=== PATIENT | female | born 1945 | race Caucasian/White ===

== ENCOUNTER → 2016-10-11 | Outpatient (CLI) | payer MEDICARE ==
[~2016-10-11] MED LIST: ALLOPURINOL100 MG PO; ASPIRIN81 M1 PO; AUGMENTIN 500500 MG PO; AUGMENTIN 875 M1 TAB PO; AUGMENTIN 875875 MG PO; B COMPLEX 501 TAB PO; BACTRIM DS 8001 TA1 PO; BENTYL10 MG PO; CALCIUM600 M2 PO; CARDURA8 MG PO; CEFUROXIME AXE250 MG PO; CIPRO500 MG PO; CIPROFLOXACIN500 MG PO; COLACE100 MG PO; COZAAR100 MG PO; COZAAR25 MG PO; CYCLOBENZAPRINE5 MG PO; DICLOFENAC SOD75 MG PO; DITROPAN5 MG PO; DOXAZOSIN4 MG PO; EPA1000 MG PO; ETOLDOLAC400 MG PO; FIBER CHOICE1 CTB PO; FISH OIL 10001000 MG PO; FLOMAX0.4 MG PO; HYDR25T PO; HYDROCODONE BIT1 T11 PO; HYZAAR 25 MG-101 TA1 PO; K-TAB20 MEQ PO; KEY-E400 IU PO; KLOR-CON M2020 ME1 PO; LASIX40 MG PO; LEVAQUIN750 MG; LEVOFLOXACIN500 MG PO; LEVOTHYROXIN0.025 MG PO; LISINOPRIL HCTZ1 TA1 PO; LOMOTIL 0.025 M1 TAB PO; Lovenox40 MG/0.4 PO; MACROBID100 M1 PO; METOPROLOL50 MG PO; MIRALAX17 GM/DOSE PO; MULTIPLE VITAMI1 TAB PO; NORCO 325 MG-101 TAB PO; NORCO 5-325 TA1 EACH PO; OMNICEF300 MG PO; OXYBUTYNIN5 MG PO; PAIN MEDICATION; PERCOCET 325 MG1 TA2 PO; PHENAZOPYRIDIN200 MG PO; PHILLIPS1 TAB PO; POTASSIUM20 MEQ PO; PYRIDIUM200 MG PO; SERTRALINE HCL50 MG PO; Synthroid,Levo50 MCG PO; THERAPEUTIC VIT1 CAP PO; TORADOL10 MG PO; TOVIAZ4 MG PO; VENTOLIN H0.09 MG/AC INH; VICODIN ES 7501 TAB PO; VITAMIN B COMPL1 CAP PO; VITAMIN C500 MG PO; VITAMIN D50000 I2 PO; VITAMIN E400 I1 PO; VITAMIN E400 UNI1 PO; ZOFRAN ODT4 MG SL; ZOLOFT50 MG PO; Zofran4 MG PO
[2016-10-11 15:30] LABS: BASO % 0.2 % (0.0-1.0); EOS # 0.3 10*3/uL (0.0-0.4); EOS % 3.2 % (1.0-4.0); HEMATOCRIT 40.6 % (37.0-47.0); IG # 0.1 10*3/uL (0.0-0.1); LYMPH # 2.1 10*3/uL (1.3-4.4); LYMPH % 23.2 % (27.0-41.0); MEAN CELL VOLUME 86.4 fl (81.0-99.0); MEAN CORPUSCULAR HGB 29.8 pg (27.0-31.0); MEAN CORPUSCULAR HGB CONC 34.5 g/dl (33.0-37.0); MEAN PLATELET VOLUME 9.4 fl (9.6-12.3); MONO # 0.9 10*3/uL (0.1-1.0); MONO % 9.5 % (3.0-9.0); NEUT # 5.6 10*3/uL (2.3-7.9); NEUT % 63.1 % (47.0-73.0); PLATELET COUNT AUTOMATED 256 10*3/uL (130-400); RED CELL DISTRI WIDTH 15.3 % (0-14.5); WHITE BLOOD COUNT 8.9 10*3/uL (4.8-10.8)
[2016-10-11 15:46] LABS: ALBUMIN 3.8 gm/dl (3.1-4.5); ALKALINE PHOSPHATASE 118 U/L (45-117); BILIRUBIN, TOTAL 0.5 mg/dl (0.2-1.0); BUN 23 mg/dl (7-24); CARBON DIOXIDE 29 mmol/L (21-32); CHLORIDE 105 mmol/L (98-107); EST GLOM FILT AFRICAN AMERICAN > 60 ml/min; GLUCOSE 96 mg/dL (65-99); POTASSIUM 3.5 mmol/L (3.5-5.1); SGOT/AST 19 IU/L (3-35); SGPT/ALT 29 U/L (12-78); SODIUM 144 mmol/L (136-145); TOTAL PROTEIN 7.9 gm/dL (6.4-8.2)
[2016-10-11 15:53] LABS: FREE T4 0.96 ng/dl (0.76-1.46); THYROID STIM HORMONE (HS) 4.8 uIU/ml (0.358-4.75); URIC ACID 5.8 mg/dL (2.6-6.0)
== END | disposition home or self-care (01) ==
LOC: LAB 14:52
PROVIDERS: Internal Medicine
DX: I10 Essential (primary) hypertension (principal); E78.2 Mixed hyperlipidemia; E03.9 Hypothyroidism, unspecified; M10.071 Idiopathic gout, right ankle and foot

== ENCOUNTER 2016-10-26 17:48 | Emergency (ER) | payer MEDICARE ==
[~2016-10-26] VITALS: Ht 162.5 cm; Wt 93.0 kg
[~2016-10-26 17:48] MED LIST changes: -NORCO 5-325 TA1 EACH PO
[2016-10-26 19:32] VITALS: BP 160/67
[2016-10-26 19:42] LABS: BASO % 0.2 % (0.0-1.0); EOS # 0.2 10*3/uL (0.0-0.4); EOS % 2.1 % (1.0-4.0); HEMATOCRIT 43.3 % (37.0-47.0); HEMOGLOBIN 14.5 g/dl (12.0-16.0); IG # 0.1 10*3/uL (0.0-0.1); LYMPH # 1.5 10*3/uL (1.3-4.4); LYMPH % 14.8 % (27.0-41.0); MEAN CELL VOLUME 88.5 fl (81.0-99.0); MEAN CORPUSCULAR HGB 29.7 pg (27.0-31.0); MEAN CORPUSCULAR HGB CONC 33.5 g/dl (33.0-37.0); MEAN PLATELET VOLUME 9.2 fl (9.6-12.3); MONO # 0.8 10*3/uL (0.1-1.0); MONO % 7.7 % (3.0-9.0); NEUT # 7.8 10*3/uL (2.3-7.9); NEUT % 74.7 % (47.0-73.0); PLATELET COUNT AUTOMATED 237 10*3/uL (130-400); RED BLOOD COUNT 4.89 10*6/uL (4.10-5.10); RED CELL DISTRI WIDTH 15.3 % (0-14.5); WHITE BLOOD COUNT 10.4 10*3/uL (4.8-10.8)
[2016-10-26 19:53] LABS: PROTHROMBIN TIME 10.7 SECONDS (9.0-12.4)
[2016-10-26 19:55] LABS: ALBUMIN 3.9 gm/dl (3.1-4.5); ALKALINE PHOSPHATASE 124 U/L (45-117); BILIRUBIN, TOTAL 0.4 mg/dl (0.2-1.0); BUN 25 mg/dl (7-24); CARBON DIOXIDE 30 mmol/L (21-32); CHLORIDE 103 mmol/L (98-107); CPK 79 U/L (26-192); EST GLOM FILT AFRICAN AMERICAN > 60 ml/min; GLUCOSE 115 mg/dL (65-99); MAGNESIUM 2.2 mg/dL (1.5-2.1); POTASSIUM 3.9 mmol/L (3.5-5.1); SGOT/AST 32 IU/L (3-35); SGPT/ALT 43 U/L (12-78); SODIUM 143 mmol/L (136-145); TOTAL PROTEIN 7.6 gm/dL (6.4-8.2); TROPONIN I 0.019 ng/ml (<0.5)
[2016-10-26 21:32] LABS: LA>2 REFLEX 2 HR DRAW NOW
[2016-10-26 21:50] LABS: BILIRUBIN NEGATIVE (NEGATIVE); BLOOD 3+ (NEGATIVE); CLARITY SL CLOUDY (CLEAR); COLOR YELLOW (YELLOW); GLUCOSE NEGATIVE (NEGATIVE); KETONE NEGATIVE (NEGATIVE); LEUKO ESTERASE 1+ (NEGATIVE); NITRITE NEGATIVE (NEGATIVE); PROTEIN 1+ (NEGATIVE); SPECIFIC GRAVITY 1.015 (1.005-1.030); UROBILINOGEN 0.2 E.U./dl (0.2-1.0)
[2016-10-26 22:14] LABS: RBC 21-30 rbc/hpf (0-2)
[2016-10-26 22:15] LABS: BACTERIA 2+; URINE REFLEX COMMENT YES (NO)
[2016-10-26] MEDS ORDERED: BACTRIM DS 8001 TA1 PO (23:24)
[2016-10-26] MEDS ORDERED: NORCO 5-325 TA1 EACH PO (23:25)
== END 2016-10-27 00:09 | disposition home or self-care (01) ==
LOC: ED 17:48
PROVIDERS: Student in an Organized Health Care Education/Training Program
DX: N20.1 Calculus of ureter (principal); N39.0 Urinary tract infection, site not specified; I50.9 Heart failure, unspecified; E78.5 Hyperlipidemia, unspecified; I10 Essential (primary) hypertension; E03.9 Hypothyroidism, unspecified; Z98.890 Other specified postprocedural states; Z90.710 Acquired absence of both cervix and uterus; Z87.891 Personal history of nicotine dependence; Z85.038 Personal history of other malignant neoplasm of large intestine; Z96.651 Presence of right artificial knee joint; Z88.0 Allergy status to penicillin

== ENCOUNTER → 2017-01-11 | Outpatient (CLI) | payer MEDICARE ==
[~2017-01-11] MED LIST changes: +FENOFIBRATE48 M1 PO; +NORCO 5-325 TA1 EACH PO
[2017-01-11 12:32] LABS: FREE T4 0.89 ng/dl (0.76-1.46)
[2017-01-11 12:37] LABS: THYROID STIM HORMONE (HS) 4.8 uIU/ml (0.358-4.75)
== END | disposition home or self-care (01) ==
LOC: LAB 10:53
PROVIDERS: Internal Medicine
DX: E03.9 Hypothyroidism, unspecified (principal)

== ENCOUNTER → 2017-01-15 | Day surgery (SDC) | payer MEDICARE ==
[~2017-01-15] VITALS: Ht 162.5 cm; Wt 93.0 kg
--- NOTE | ~2017-01-15 | O ---
[place], [place] OPERATIVE NOTE NAME: JOHN MORALES REDWOOD LLCT #: [id number] UNIT #: [id number] ROOM: DOCTOR: DOMENICA FONSECA MD BIRTHDATE: [birth year] DOS: 01/15/2017 PREOPERATIVE DIAGNOSIS: Right hydronephrosis, stent dependent. POSTOPERATIVE DIAGNOSIS: Right hydronephrosis, stent dependent. PROCEDURE: Cystoscopy and exchange of the left ureteral stent. FINDINGS: The KUB taken preop shows no evidence of calcification on the kidney or bladder loop. DESCRIPTION OF PROCEDURE: After obtaining satisfactory sedation, the patient was placed in a lithotomy position. Genitalia was prepped and draped in sterile manner. A 21 ACMI cystoscope placed into the bladder. The stent was seen coming through the right orifice. The loop was grasped and brought out of the urethral meatus. A 0.35 guidewire was then threaded through the stent all the way up into the upper collecting system. The stent was then removed without any difficulty. The cystoscope was backloaded on the guidewire and then I deployed a size 6-[place] 26 cm ureteral stent under fluoroscopic control. The guidewire was then removed. Stent was deployed with a good pigtailing as seen in the renal pelvis and the bladder. The patient tolerated the procedure very well. She was then recovered from sedation and was transferred to recovery room in satisfactory condition. DOMENICA FONSECA MD CM:OPRECORD:OPERATIVE NOTE [id number] DOMENICA FONSECA MD 01/15/17 1034 interface
[2017-01-15 07:10] VITALS: BP 154/74
[2017-01-15 08:18] VITALS: BP 128/65
[2017-01-15 08:32] VITALS: BP 128/65
[2017-01-15 08:46] VITALS: BP 128/65
== END | disposition home or self-care (01) ==
LOC: SDC 01-11 11:00
DX: N13.30 Unspecified hydronephrosis (principal); I10 Essential (primary) hypertension; F41.9 Anxiety disorder, unspecified; F32.9 Major depressive disorder, single episode, unspecified; E07.9 Disorder of thyroid, unspecified; M10.9 Gout, unspecified; M19.90 Unspecified osteoarthritis, unspecified site; I50.9 Heart failure, unspecified; Z85.038 Personal history of other malignant neoplasm of large intestine; Z90.710 Acquired absence of both cervix and uterus; Z83.3 Family history of diabetes mellitus; Z82.49 Family history of ischemic heart disease and other diseases of the circulatory system

== ENCOUNTER → 2017-02-27 | Outpatient (CLI) | payer MEDICARE ==
[2017-02-27 12:25] LABS: BUN 30 mg/dl (7-24); CARBON DIOXIDE 34 mmol/L (21-32); CHLORIDE 104 mmol/L (98-107); EST GLOM FILT AFRICAN AMERICAN > 60 ml/min; GLUCOSE 113 mg/dL (65-99); POTASSIUM 3.7 mmol/L (3.5-5.1); SODIUM 144 mmol/L (136-145)
== END | disposition home or self-care (01) ==
LOC: LAB 11:22
PROVIDERS: Urology
DX: N13.30 Unspecified hydronephrosis (principal)

== ENCOUNTER → 2017-04-11 | Outpatient (CLI) | payer MEDICARE ==
[2017-04-11 14:21] LABS: ALBUMIN 3.9 gm/dl (3.1-4.5); BILIRUBIN, TOTAL 0.4 mg/dl (0.2-1.0); FREE T4 1.03 ng/dl (0.76-1.46); POTASSIUM 3.4 mmol/L (3.5-5.1); TOTAL PROTEIN 7.7 gm/dL (6.4-8.2)
[2017-04-11 14:23] LABS: BASO % 0.3 % (0.0-1.0); EOS # 0.2 10*3/uL (0.0-0.4); EOS % 2.8 % (1.0-4.0); HEMATOCRIT 42.2 % (37.0-47.0); HEMOGLOBIN 14.2 g/dl (12.0-16.0); LYMPH # 1.8 10*3/uL (1.3-4.4); LYMPH % 24.9 % (27.0-41.0); MEAN CORPUSCULAR HGB 29.3 pg (27.0-31.0); MEAN CORPUSCULAR HGB CONC 33.6 g/dl (33.0-37.0); MEAN PLATELET VOLUME 9.9 fl (9.6-12.3); MONO # 0.5 10*3/uL (0.1-1.0); MONO % 7.1 % (3.0-9.0); NEUT # 4.5 10*3/uL (2.3-7.9); NEUT % 64.5 % (47.0-73.0); PLATELET COUNT AUTOMATED 272 10*3/uL (130-400); RED BLOOD COUNT 4.85 10*6/uL (4.10-5.10); RED CELL DISTRI WIDTH 13.8 % (0-14.5)
[2017-04-11 14:25] LABS: THYROID STIM HORMONE (HS) 2.45 uIU/ml (0.358-4.75)
== END | disposition home or self-care (01) ==
LOC: LAB 13:22
PROVIDERS: Internal Medicine
DX: I10 Essential (primary) hypertension (principal); M81.0 Age-related osteoporosis without current pathological fracture; E03.9 Hypothyroidism, unspecified; E78.2 Mixed hyperlipidemia

== ENCOUNTER → 2017-06-07 | Outpatient (CLI) | payer MEDICARE ==
[2017-06-07 14:58] LABS: BASO % 0.3 % (0.0-1.0); EOS # 0.3 10*3/uL (0.0-0.4); EOS % 3.8 % (1.0-4.0); HEMATOCRIT 39.3 % (37.0-47.0); HEMOGLOBIN 13.5 g/dl (12.0-16.0); LYMPH # 1.9 10*3/uL (1.3-4.4); LYMPH % 25.8 % (27.0-41.0); MEAN CELL VOLUME 86.2 fl (81.0-99.0); MEAN CORPUSCULAR HGB 29.6 pg (27.0-31.0); MEAN CORPUSCULAR HGB CONC 34.4 g/dl (33.0-37.0); MEAN PLATELET VOLUME 9.1 fl (9.6-12.3); MONO # 0.7 10*3/uL (0.1-1.0); NEUT # 4.4 10*3/uL (2.3-7.9); NEUT % 60.4 % (47.0-73.0); PLATELET COUNT AUTOMATED 242 10*3/uL (130-400); RED BLOOD COUNT 4.56 10*6/uL (4.10-5.10); RED CELL DISTRI WIDTH 14.2 % (0-14.5); WHITE BLOOD COUNT 7.3 10*3/uL (4.8-10.8)
== END | disposition home or self-care (01) ==
LOC: LAB 14:03 → US 14:30
PROVIDERS: Physician Assistant
DX: R60.0 Localized edema (principal); M25.561 Pain in right knee; Z96.651 Presence of right artificial knee joint

== ENCOUNTER → 2017-08-02 | Outpatient (CLI) | payer MEDICARE | END | disposition home or self-care (01) | LOC: RAD 13:02 → MAMMO 14:00 | DX: Z12.31 Encounter for screening mammogram for malignant neoplasm of breast (principal); M81.0 Age-related osteoporosis without current pathological fracture; Z90.710 Acquired absence of both cervix and uterus; Z90.722 Acquired absence of ovaries, bilateral ==

== ENCOUNTER 2017-10-21 11:40 | Emergency (ER) | payer MEDICARE ==
[~2017-10-21] VITALS: Ht 162.5 cm; Wt 95.3 kg
[2017-10-21 12:07] LABS: BASO % 0.4 % (0.0-1.0); EOS # 0.3 10*3/uL (0.0-0.4); EOS % 3.1 % (1.0-4.0); HEMATOCRIT 44.7 % (37.0-47.0); LYMPH # 1.8 10*3/uL (1.3-4.4); MEAN CELL VOLUME 86.6 fl (81.0-99.0); MEAN CORPUSCULAR HGB 29.1 pg (27.0-31.0); MEAN CORPUSCULAR HGB CONC 33.6 g/dl (33.0-37.0); MEAN PLATELET VOLUME 9.6 fl (9.6-12.3); MONO # 0.7 10*3/uL (0.1-1.0); MONO % 8.2 % (3.0-9.0); NEUT # 6.1 10*3/uL (2.3-7.9); NEUT % 67.5 % (47.0-73.0); PLATELET COUNT AUTOMATED 289 10*3/uL (130-400); RED BLOOD COUNT 5.16 10*6/uL (4.10-5.10); RED CELL DISTRI WIDTH 14.2 % (0-14.5)
[2017-10-21 12:15] LABS: ACT PARTIAL THROMBO TIME 24.1 SECONDS (20.8-31.5)
[2017-10-21 12:15] LABS: BILIRUBIN NEGATIVE (NEGATIVE); BLOOD NEGATIVE (NEGATIVE); CLARITY SL CLOUDY (CLEAR); COLOR YELLOW (YELLOW); GLUCOSE NEGATIVE (NEGATIVE); KETONE NEGATIVE (NEGATIVE); LEUKO ESTERASE 3+ (NEGATIVE); NITRITE NEGATIVE (NEGATIVE); PH 6.5 (5.0-9.0); SPECIFIC GRAVITY <= 1.005 (1.005-1.030); UROBILINOGEN 0.2 E.U./dl (0.2-1.0)
[2017-10-21 12:25] LABS: ALBUMIN 4.1 gm/dl (3.1-4.5); CREATININE 1.09 mg/dL (0.55-1.02); POTASSIUM 3.7 mmol/L (3.5-5.1); TOTAL PROTEIN 8.2 gm/dL (6.4-8.2); TROPONIN I 0.017 ng/ml (<0.045)
[2017-10-21 12:38] LABS: BACTERIA 2+; WBC 31-40 wbc/hpf (0-5); YEAST TRACE
[2017-10-21 13:15] VITALS: BP 130/80
[2017-10-21] MEDS ORDERED: Meclizine25 MG PO (13:38)
== END 2017-10-21 14:39 | disposition home or self-care (01) ==
LOC: ED 11:40
PROVIDERS: Student in an Organized Health Care Education/Training Program
DX: N39.0 Urinary tract infection, site not specified (principal); I50.9 Heart failure, unspecified; I10 Essential (primary) hypertension; E78.5 Hyperlipidemia, unspecified; E03.9 Hypothyroidism, unspecified; Z90.89 Acquired absence of other organs; Z90.710 Acquired absence of both cervix and uterus; Z79.899 Other long term (current) drug therapy

== ENCOUNTER → 2018-01-02 | Outpatient (CLI) | payer MEDICARE ==
[~2018-01-02] MED LIST changes: +Meclizine25 MG PO
[2018-01-02 09:12] LABS: BASO # 0.1 10*3/uL (0.0-0.1); BASO % 0.6 % (0.0-1.0); EOS # 0.3 10*3/uL (0.0-0.4); EOS % 2.4 % (1.0-4.0); HEMATOCRIT 45.3 % (37.0-47.0); LYMPH # 2.5 10*3/uL (1.3-4.4); LYMPH % 20.9 % (27.0-41.0); MEAN CELL VOLUME 88.1 fl (81.0-99.0); MEAN CORPUSCULAR HGB 29.2 pg (27.0-31.0); MEAN CORPUSCULAR HGB CONC 33.1 g/dl (33.0-37.0); MEAN PLATELET VOLUME 9.6 fl (9.6-12.3); MONO # 1.1 10*3/uL (0.1-1.0); MONO % 9.4 % (3.0-9.0); NEUT # 7.7 10*3/uL (2.3-7.9); NEUT % 64.5 % (47.0-73.0); PLATELET COUNT AUTOMATED 268 10*3/uL (130-400); RED BLOOD COUNT 5.14 10*6/uL (4.10-5.10); RED CELL DISTRI WIDTH 14.6 % (0-14.5); WHITE BLOOD COUNT 11.9 10*3/uL (4.8-10.8)
[2018-01-02 09:27] LABS: ALBUMIN 4.1 gm/dl (3.1-4.5); ALKALINE PHOSPHATASE 85 U/L (45-117); BUN 38 mg/dl (7-24); CHLORIDE 100 mmol/L (98-107); CHOLESTEROL 184 mg/dL (<200); CREATININE 0.97 mg/dL (0.55-1.02); FREE T4 1.05 ng/dl (0.76-1.46); HDL CHOLESTEROL 38 mg/dl (40-60); LDL CHOLESTEROL 104 mg/dL (9-159); POTASSIUM 3.3 mmol/L (3.5-5.1); SGOT/AST 20 IU/L (3-35); SGPT/ALT 26 U/L (12-78); SODIUM 141 mmol/L (136-145); TOTAL PROTEIN 7.8 gm/dL (6.4-8.2); TRIGLYCERIDES 209 mg/dl (<150); VLDL CHOLESTEROL 42 mg/dL (6-40)
== END | disposition home or self-care (01) ==
LOC: LAB 08:38
PROVIDERS: Internal Medicine
DX: E78.2 Mixed hyperlipidemia (principal); I10 Essential (primary) hypertension; E03.9 Hypothyroidism, unspecified; E55.9 Vitamin D deficiency, unspecified

== ENCOUNTER → 2018-08-09 | Outpatient (CLI) | payer MEDICARE | END | disposition home or self-care (01) | LOC: US 08:46 | DX: K76.0 Fatty (change of) liver, not elsewhere classified (principal) ==

== ENCOUNTER 2019-02-02 16:51 | Emergency (ER) | payer MEDICARE ==
[~2019-02-02] VITALS: Ht 160 cm; Wt 95.3 kg
--- NOTE | ~2019-02-02 | EKG ---
[place], [place] ELECTROCARDIOGRAM REPORT NAME: JOHN MORALES UNIT #: [id number] ROOM: DOCTOR: EPIPHANY DRAFT REPORT BIRTHDATE: [birth year] [facility] Test Date: 2019-02-02 Test Time: 17:43:05 Pat Name: JOHN MORALES Department: Room: Gender: F Educational Adviser: : 1945 Requested By: IZZY VILLAR PA-C Order Number: [id number] Reading MD: Nohemy Hernandez MD Measurements Intervals [place] Rate: 60 P: -15 SD: 168 QRS: -22 QRSD: 124 T: 24 QT: 460 QTc: 460 Interpretive Statements Sinus rhythm Left ventricular hypertrophy Electronically Signed On 02-06-2019 8:07:46 PDT by Nohemy Hernandez MD CM:EKGRPT:ELECTROCARDIOGRAM REPORT [id number] IZZY VILLAR PA-C EPIPHANY DRAFT REPORT IZZY VILLAR PA-C
[2019-02-02 17:56] LABS: BASO % 0.3 % (0.0-1.0); EOS # 0.1 10*3/uL (0.0-0.4); EOS % 1.3 % (1.0-4.0); HEMATOCRIT 40.5 % (37.0-47.0); HEMOGLOBIN 13.8 g/dl (12.0-16.0); LYMPH # 0.8 10*3/uL (1.3-4.4); LYMPH % 7.6 % (27.0-41.0); MEAN CELL VOLUME 88.2 fl (81.0-99.0); MEAN CORPUSCULAR HGB 30.1 pg (27.0-31.0); MEAN CORPUSCULAR HGB CONC 34.1 g/dl (33.0-37.0); MEAN PLATELET VOLUME 9.4 fl (9.6-12.3); MONO # 0.6 10*3/uL (0.1-1.0); MONO % 5.9 % (3.0-9.0); NEUT # 8.8 10*3/uL (2.3-7.9); NEUT % 84.2 % (47.0-73.0); PLATELET COUNT AUTOMATED 201 10*3/uL (130-400); RED BLOOD COUNT 4.59 10*6/uL (4.10-5.10); RED CELL DISTRI WIDTH 14.6 % (0-14.5); WHITE BLOOD COUNT 10.5 10*3/uL (4.8-10.8)
[2019-02-02 18:11] LABS: ALBUMIN 3.6 gm/dl (3.1-4.5); ALKALINE PHOSPHATASE 142 U/L (45-117); BUN 19 mg/dl (7-24); CHLORIDE 101 mmol/L (98-107); CREATININE 0.84 mg/dL (0.55-1.02); LIPASE 104 U/L (73-393); POTASSIUM 3.6 mmol/L (3.5-5.1); SGOT/AST 24 IU/L (3-35); SGPT/ALT 27 U/L (12-78); SODIUM 138 mmol/L (136-145); TOTAL PROTEIN 7.5 gm/dL (6.4-8.2)
[2019-02-02 18:16] LABS: TROPONIN I < 0.015 ng/ml (<0.045)
[2019-02-02] MEDS ORDERED: ZOFRAN4 MG PO (18:27)
[2019-02-02] MEDS ORDERED: ZITHROMAX250 MG PO (18:27)
[2019-02-02 18:31] VITALS: BP 125/55
== END 2019-02-02 19:30 | disposition home or self-care (01) ==
LOC: ED 16:51
PROVIDERS: Physician Assistant
DX: J40 Bronchitis, not specified as acute or chronic (principal); R11.0 Nausea; Z79.899 Other long term (current) drug therapy; Z87.891 Personal history of nicotine dependence

== ENCOUNTER → 2019-09-10 | Outpatient (CLI) | payer MEDICARE ==
[~2019-09-10] MED LIST changes: +ZITHROMAX250 MG PO; +ZOFRAN4 MG PO
== END | disposition home or self-care (01) ==
LOC: MAMMO 09:52
DX: Z12.31 Encounter for screening mammogram for malignant neoplasm of breast (principal)

== ENCOUNTER 2019-11-26 09:44 | Inpatient (IN) | payer MEDICARE ==
[~2019-11-26] VITALS: Ht 162.5 cm; Wt 92.1 kg
[2019-11-26] VITALS (7 sets, daily range): BP systolic 127–138; BP diastolic 47–64
[2019-11-26 10:59] LABS: BASO % 0.2 % (0.0-1.0); EOS # 0.2 10*3/uL (0.0-0.4); EOS % 1.7 % (1.0-4.0); LYMPH # 1.3 10*3/uL (1.3-4.4); LYMPH % 14.3 % (27.0-41.0); MEAN CELL VOLUME 87.3 fl (81.0-99.0); MEAN CORPUSCULAR HGB 29.1 pg (27.0-31.0); MEAN CORPUSCULAR HGB CONC 33.3 g/dl (33.0-37.0); MEAN PLATELET VOLUME 9.6 fl (9.6-12.3); MONO # 0.8 10*3/uL (0.1-1.0); MONO % 8.4 % (3.0-9.0); NEUT # 6.9 10*3/uL (2.3-7.9); PLATELET COUNT AUTOMATED 248 10*3/uL (130-400); RED BLOOD COUNT 4.81 10*6/uL (4.10-5.10); RED CELL DISTRI WIDTH 14.3 % (0-14.5); WHITE BLOOD COUNT 9.3 10*3/uL (4.8-10.8)
[2019-11-26 11:09] LABS: ACT PARTIAL THROMBO TIME 25.9 SECONDS (20.0-32.1)
[2019-11-26 11:30] LABS: ALBUMIN 3.7 gm/dl (3.1-4.5); ALKALINE PHOSPHATASE 138 U/L (45-117); BUN 25 mg/dl (7-24); CHLORIDE 105 mmol/L (98-107); LIPASE 116 U/L (73-393); SGOT/AST 23 IU/L (3-35); SGPT/ALT 33 U/L (12-78); SODIUM 142 mmol/L (136-145); TOTAL PROTEIN 7.6 gm/dL (6.4-8.2); TROPONIN I 0.016 ng/ml (<0.045)
[2019-11-26] MEDS ORDERED: FISH OIL 1,0001 EAC4 PO (12:21)
--- NOTE | 2019-11-26 13:38 | NUR ---
LUNCH TRAY DELIVERED TO ROOM.
--- NOTE | 2019-11-26 14:25 | NUR ---
[facility] , under the services of SHAYY Pierre DO with a diagnosis of DEHYDRATION. Chief complaint is DENIES AT PRESENT. Patient arrived via bed from ER. Monitor applied. Initial assessment completed. Vital signs taken and recorded. SHAYY PIERRE DO notified of admission to the unit. Orders received. See assessment for past medical history, medications and allergies. Patient and/or family oriented to unit. [facility] visitation policy reviewed. Clothing/patient valuable form completed. ANDRES OCONNOR
[2019-11-27] VITALS: BP 116/57
--- NOTE | 2019-11-27 02:12 | NUR ---
SPOKE WITH DR BLANTON REGARDING PT C/O DIARRHEA. T.O. TAKEN FOR 5MG IMMODIUM AT THIS TIME.
--- NOTE | 2019-11-27 02:16 | NUR ---
SPOKE WITH DR BLANTON REGARDING PT'S C/O DIARRHEA. T.O. TAKEN FOR 5MG IMODIUM NOW.
[2019-11-27 06:32] LABS: BASO % 0.2 % (0.0-1.0); EOS # 0.3 10*3/uL (0.0-0.4); EOS % 3.1 % (1.0-4.0); HEMATOCRIT 36.8 % (37.0-47.0); HEMOGLOBIN 12.4 g/dl (12.0-16.0); LYMPH # 1.8 10*3/uL (1.3-4.4); LYMPH % 21.1 % (27.0-41.0); MEAN CELL VOLUME 88.2 fl (81.0-99.0); MEAN CORPUSCULAR HGB 29.7 pg (27.0-31.0); MEAN CORPUSCULAR HGB CONC 33.7 g/dl (33.0-37.0); MEAN PLATELET VOLUME 9.8 fl (9.6-12.3); MONO # 0.8 10*3/uL (0.1-1.0); NEUT # 5.4 10*3/uL (2.3-7.9); NEUT % 65.1 % (47.0-73.0); PLATELET COUNT AUTOMATED 209 10*3/uL (130-400); RED BLOOD COUNT 4.17 10*6/uL (4.10-5.10); RED CELL DISTRI WIDTH 14.5 % (0-14.5); WHITE BLOOD COUNT 8.3 10*3/uL (4.8-10.8)
[2019-11-27 07:06] LABS: ALBUMIN 3.5 gm/dl (3.1-4.5); ALKALINE PHOSPHATASE 117 U/L (45-117); BUN 20 mg/dl (7-24); CHLORIDE 107 mmol/L (98-107); CHOLESTEROL 136 mg/dL (<200); CREATININE 0.87 mg/dL (0.55-1.02); HDL CHOLESTEROL 35 mg/dl (40-60); LDL CHOLESTEROL 72 mg/dL (9-159); PHOSPHOROUS 3.4 mg/dL (2.5-4.9); POTASSIUM 3.2 mmol/L (3.5-5.1); SGOT/AST 19 IU/L (3-35); SGPT/ALT 27 U/L (12-78); SODIUM 142 mmol/L (136-145); TOTAL PROTEIN 6.8 gm/dL (6.4-8.2); TRIGLYCERIDES 147 mg/dl (<150); VLDL CHOLESTEROL 29 mg/dL (6-40)
[2019-11-27 08:44] LABS: VITAMIN D, 25-HYDROXY 42.9 ng/mL (30-100)
--- NOTE | 2019-11-27 09:00 | NUR ---
Resource Manager in to talk to patient. Patient states lives at home with . There are no steps in the home. Physician: tawanda williamson Pharmacy: [facility] health services: none Patient's level of ADLs: INDEPENDENT Patient has working utilities: all working DME: none Follow-up physician's appointment after d/c: will be made by hospitalist nurse director upon discharge Does patient want to access PORTAL?: no Discharge plan discussed with patient, she lives at home with , she states she is independent in adls and ambulation, she states she will return home when medically stable, discussed with her VNA and she was receptive to this given choice of companies she chose [employer], will send a referral to [facility] when patient is medically stable for discharge. REN CALDWELL
--- NOTE | 2019-11-27 12:10 | NUR ---
Discharge instructions reviewed with patient/family. Patient receptive and verbalizes understanding. Follow-up care arranged. Written instructions given to patient/family. Patient was educated on follow up visit with family physician and CBC ordered. She ambulated from unit with family members and all personal belongings accounted for. QUINN LUTZ
--- NOTE | 2019-11-27 13:35 | NUR ---
case managment faxed [facility] referral and notified them that patient was a discharge to home today
--- NOTE | 2019-11-28 09:05 | NUR ---
Received call from vickey at [facility]. She stated they attempted to admit patient for home health and patient stated she doesn't need home health and hung up on their nurse. No home health admission.
== END 2019-11-27 12:10 | disposition home or self-care (01) | DRG 378 ==
LOC: ED 09:44 → EDHOLD 12:07 → 4E 12:07
PROVIDERS: Emergency Medicine; Internal Medicine; ADMIT Internal Medicine
DX: K62.5 Hemorrhage of anus and rectum (principal); C18.9 Malignant neoplasm of colon, unspecified; K52.9 Noninfective gastroenteritis and colitis, unspecified; E86.0 Dehydration; I11.0 Hypertensive heart disease with heart failure; I50.9 Heart failure, unspecified; E03.9 Hypothyroidism, unspecified; E78.5 Hyperlipidemia, unspecified; E87.6 Hypokalemia; Z90.710 Acquired absence of both cervix and uterus; Z93.3 Colostomy status; Z82.49 Family history of ischemic heart disease and other diseases of the circulatory system; Z83.3 Family history of diabetes mellitus; Z80.0 Family history of malignant neoplasm of digestive organs

== ENCOUNTER → 2019-12-01 | Outpatient (CLI) | payer MEDICARE ==
[~2019-12-01] MED LIST changes: +FISH OIL 1,0001 EAC4 PO
[2019-12-01 11:16] LABS: BASO % 0.5 % (0.0-1.0); EOS # 0.3 10*3/uL (0.0-0.4); EOS % 3.5 % (1.0-4.0); HEMATOCRIT 44.6 % (37.0-47.0); HEMOGLOBIN 14.8 g/dl (12.0-16.0); LYMPH # 1.9 10*3/uL (1.3-4.4); LYMPH % 22.6 % (27.0-41.0); MEAN CELL VOLUME 88.3 fl (81.0-99.0); MEAN CORPUSCULAR HGB 29.3 pg (27.0-31.0); MEAN CORPUSCULAR HGB CONC 33.2 g/dl (33.0-37.0); MEAN PLATELET VOLUME 9.3 fl (9.6-12.3); MONO # 0.8 10*3/uL (0.1-1.0); MONO % 9.3 % (3.0-9.0); NEUT # 5.4 10*3/uL (2.3-7.9); PLATELET COUNT AUTOMATED 273 10*3/uL (130-400); RED BLOOD COUNT 5.05 10*6/uL (4.10-5.10); RED CELL DISTRI WIDTH 14.4 % (0-14.5); WHITE BLOOD COUNT 8.5 10*3/uL (4.8-10.8)
== END | disposition home or self-care (01) ==
LOC: LAB 10:50
PROVIDERS: Internal Medicine
DX: K62.5 Hemorrhage of anus and rectum (principal)

== ENCOUNTER → 2020-11-01 | Outpatient (CLI) | payer MEDICARE | END | disposition home or self-care (01) | LOC: MAMMO 08:19 | PROVIDERS: ATTEND Physician Assistant | DX: Z12.31 Encounter for screening mammogram for malignant neoplasm of breast (principal); N64.89 Other specified disorders of breast; I10 Essential (primary) hypertension; R23.4 Changes in skin texture ==

== ENCOUNTER → 2022-03-31 | Outpatient (CLI) | payer MEDICARE | END | disposition home or self-care (01) | LOC: CT 10:25 | PROVIDERS: ATTEND Physician Assistant | DX: I67.82 Cerebral ischemia (principal); I61.9 Nontraumatic intracerebral hemorrhage, unspecified; G93.89 Other specified disorders of brain ==

== ENCOUNTER → 2022-11-28 | Outpatient (CLI) | payer MEDICARE | END | disposition home or self-care (01) | LOC: RAD 11:22 | PROVIDERS: ATTEND Internal Medicine | DX: S16.1XXA Strain of muscle, fascia and tendon at neck level, initial encounter (principal); M48.02 Spinal stenosis, cervical region; X58.XXXA Exposure to other specified factors, initial encounter; Y93.89 Activity, other specified; Y92.89 Other specified places as the place of occurrence of the external cause; Y99.8 Other external cause status ==

== ENCOUNTER → 2023-11-13 | Outpatient (CLI) | payer MEDICARE ==
[2023-11-13 13:46] LABS: ALKALINE PHOSPHATASE 104 U/L (46-116); BUN 24 mg/dl (9-23); CHLORIDE 104 mmol/L (98-107); CPK 65 U/L (34-171); POTASSIUM 3.3 mmol/L (3.4-5.1); SGPT/ALT 20 U/L (5-49); TOTAL PROTEIN 7.4 gm/dL (6.0-8.0)
[2023-11-15 04:06] LABS: HBSAG Negative (Negative); HEP B CORE AB, IGM Negative (Negative); HEPATITIS C ANTIBODY Non Reactive (Non Reactive)
== END | disposition home or self-care (01) ==
LOC: LAB 12:31
PROVIDERS: ATTEND Nurse Practitioner
DX: R53.83 Other fatigue (principal); Z79.899 Other long term (current) drug therapy

== ENCOUNTER → 2023-11-22 | Outpatient (CLI) | payer MEDICARE ==
[2023-11-24 11:07] LABS: TB1 Ag VALUE 0.04 IU/mL (.)
== END | disposition home or self-care (01) ==
LOC: LAB 12:10
PROVIDERS: ATTEND Specialist
DX: Z79.899 Other long term (current) drug therapy (principal)

== ENCOUNTER 2024-11-29 12:53 | Emergency (ER) | payer MEDICARE ==
[~2024-11-29] VITALS: Ht 160 cm; Wt 80.3 kg
[2024-11-29 13:29] VITALS: BP 143/58
[2024-11-29] MEDS ORDERED: Acetaminophen/Hydrocodone 5 MG/325 MG TABLET PO ONE (13:40)
== END 2024-11-29 15:03 | disposition home or self-care (01) ==
LOC: ED 12:53
DX: S46.912A Strain of unspecified muscle, fascia and tendon at shoulder and upper arm level, left arm, initial encounter (principal); F41.9 Anxiety disorder, unspecified; F32.A Depression, unspecified; M10.9 Gout, unspecified; I11.0 Hypertensive heart disease with heart failure; I50.9 Heart failure, unspecified; M19.90 Unspecified osteoarthritis, unspecified site; Z90.710 Acquired absence of both cervix and uterus; Z90.89 Acquired absence of other organs; Z96.651 Presence of right artificial knee joint; Z98.890 Other specified postprocedural states; Z87.891 Personal history of nicotine dependence; X50.1XXA Overexertion from prolonged static or awkward postures, initial encounter; Y93.89 Activity, other specified; Y92.009 Unspecified place in unspecified non-institutional (private) residence as the place of occurrence of the external cause; Y99.8 Other external cause status

== ENCOUNTER → 2025-10-05 | Outpatient (CLI) | payer MEDICARE ==
[2025-10-05 15:02] LABS: BASO # 0.0 10*3/uL (0.0-0.1); BASO % 0.4 % (0.0-1.0); EOS # 0.0 10*3/uL (0.0-0.4); EOS % 0.2 % (1.0-4.0); MEAN CELL VOLUME 90.3 fl (81.0-99.0); MEAN CORPUSCULAR HGB 29.2 pg (27.0-31.0); MEAN PLATELET VOLUME 9.4 fl (9.6-12.3); MONO # 0.4 10*3/uL (0.1-1.0); MONO % 7.4 % (3.0-9.0); NEUT # 4.7 10*3/uL (2.3-7.9); NEUT % 85.1 % (47.0-73.0); NUCLEATED RED BLOOD CELL 0.0 % (0.0-0.0); NUCLEATED RED BLOOD CELL 0.0 10*3/uL (0.0-0.0); PLATELET COUNT AUTOMATED 180 10*3/uL (130-400); RED CELL DISTRI WIDTH 14.4 % (0-14.5)
[2025-10-05 15:07] LABS: BILIRUBIN Negative (Negative); BLOOD Negative (Negative); CLARITY Clear (Clear); COLOR Yellow (Yellow); KETONE Negative (Negative); LEUKO ESTERASE 3+ (Negative); NITRITE Negative (Negative); PH 6.0 (4.5-8.0); SPECIFIC GRAVITY 1.010 (1.001-1.030); UROBILINOGEN 0.2 E.U./dl (0.0-1.0)
[2025-10-05 15:24] LABS: BUN 27.0 mg/dl (9-23)
[2025-10-05 15:28] LABS: BACTERIA 2+; HYALINE CAST 0-2; RBC 0-2 rbc/hpf (0-2); WBC 16-20 wbc/hpf (0-5)
== END | disposition home or self-care (01) ==
LOC: RESCLI 12:46 → LAB 12:46
PROVIDERS: Student in an Organized Health Care Education/Training Program; ATTEND Internal Medicine
DX: R11.0 Nausea (principal); Z79.899 Other long term (current) drug therapy